=== PATIENT | female | born 1950 | race Caucasian/White ===

== ENCOUNTER 2016-06-01 11:36 | Observation (INO) | payer MEDICARE, OTHER ==
[~2016-06-01] VITALS: Ht 167.6 cm; Wt 86.5 kg
[2016-06-01] MEDS ORDERED: PROBCAP4 PO (11:51)
[2016-06-01] MEDS ORDERED: [UNRECOGNIZED DRUG - CODE] PO (11:51)
[2016-06-01] MEDS ORDERED: CARV12.5 (11:51)
[2016-06-01] MEDS ORDERED: ATOR1TAB19 (11:51)
[2016-06-01] MEDS ORDERED: FISH1000 PO ×2 (11:51→14:40)
[2016-06-01] MEDS ORDERED: VITA200016 PO (11:51)
[2016-06-01] MEDS ORDERED: CLAR10CA3 PO (11:51)
[2016-06-01] MEDS ORDERED: FLON1SPR (11:51)
[2016-06-01] MEDS ORDERED: PROA1AER (11:51)
[2016-06-01 12:23] LABS: BASO % 0.6 % (0.0-1.0); EOS # 0.4 K/mm3 (0.0-0.50); EOS % 4.6 % (0.0-3.0); LARGE UNSTAINED CELL # 0.3 K/mm3 (0.0-0.4); LARGE UNSTAINED CELL % 3.2 % (0.0-4.0); LYMPH # 2.3 K/mm3 (1.5-4.5); LYMPH % 27.8 % (24.0-44.0); MEAN CORPUSCULAR HEMOGLOBIN 32.1 pg (27.0-33.0); MEAN CORPUSCULAR HGB CONC 34.6 g/dl (32.0-36.5); MEAN CORPUSCULAR VOLUME 92.5 fl (80.0-96.0); MONO # 0.5 K/mm3 (0.0-0.8); MONO % 6.1 % (0.0-5.0); NEUTROPHILS # 4.7 K/mm3 (1.8-7.7); NEUTROPHILS % 57.8 % (36.0-66.0); PLATELET COUNT, AUTOMATED 251 k/mm3 (150-450); WHITE BLOOD COUNT 8.2 K/mm3 (4.0-10.0)
[2016-06-01] MEDS ORDERED: ASPIRIN 81 MG CHEW TABLET PO ONE (12:30)
--- NOTE | 2016-06-01 12:39 | REP ---
Portable chest, single AP view, patient sitting: Comparison is 08/26 2002. The lung acuna are clear. The cardiac size is normal. The torin, mediastinum, and bony thorax are unremarkable. Impression: Negative portable chest. Signed by Sebastián Townsend MD 06/01/2016 12:30 P
[2016-06-01 12:50] LABS: ANION GAP 4 MEQ/L (8-16); BLOOD UREA NITROGEN 13 MG/DL (7-18); CALCIUM LEVEL 8.5 MG/DL (8.8-10.2); CARBON DIOXIDE LEVEL 29 MEQ/L (21-32); CHLORIDE LEVEL 108 MEQ/L (98-107); CREATININE FOR GFR 0.69 MG/DL (0.55-1.02); GLOMERULAR FILTRATION RATE > 60.0 (>45); GLUCOSE, FASTING 95 MG/DL (80-110); SODIUM LEVEL 141 MEQ/L (136-145)
[2016-06-01 12:51] LABS: ALBUMIN 3.5 GM/DL (3.2-5.2); ALBUMIN/GLOBULIN RATIO 1.13 (1.00-1.93); BILIRUBIN,DIRECT 0.2 MG/DL (0.0-0.2); BILIRUBIN,TOTAL 0.8 MG/DL (0.2-1.0); TOTAL PROTEIN 6.6 GM/DL (6.4-8.2)
[2016-06-01] MEDS ORDERED: ISOVUE-370 76% 100ML VIAL (Q9967) As Ordered ONE (13:31)
--- NOTE | 2016-06-01 14:12 | REP ---
Of the CT of the chest with IV contrast, CT pulmonary angiography: There are no comparisons. There are no emboli in the pulmonary trunk or central pulmonary arteries. There are small emboli in the pulmonary artery to the apical segment of the right upper lobe. No other emboli are identified. There are no infiltrates, effusions or masses. There is no adenopathy. The thoracic aorta is unremarkable. Cardiac size is normal. There is no pericardial effusion. The visualized upper abdominal contents are unremarkable except for a 2.4 cm hepatic cyst. Impression: There are small emboli in the pulmonary artery to the knee apical segment of the right upper lobe. There is a 2.4 cm hepatic cyst. Otherwise, negative CT study of the chest. Signed by Sebastián Townsend MD 06/01/2016 02:04 P
[2016-06-01 14:30] LABS: INR 1.02
[2016-06-01] MEDS ORDERED: ATOR1TAB19 PO (14:39)
[2016-06-01] MEDS ORDERED: PROA1AER INH (14:39)
[2016-06-01] MEDS ORDERED: BREO1INH INH (14:39)
[2016-06-01] MEDS ORDERED: CARV12.5 PO (14:39)
--- NOTE | 2016-06-01 15:51 | REP ---
Bilateral lower extremity deep vein duplex ultrasound: The deep veins demonstrate normal compression, normal Doppler color flow and normal Doppler waveforms with respiration and augmentation from the popliteal vein to the common femoral vein. Impression: There is no deep vein thrombus in the right or left lower extremity. Signed by Sebastián Townsend MD 06/01/2016 03:42 P
[2016-06-01 17:50] VITALS: BP 139/92
[2016-06-01 18:02] LABS: ERYTHROCYTE SEDIMENTATION RATE 14 mm/hr (0-30)
[2016-06-01] MEDS ORDERED: IPRATROPIUM 0.5MG/ALBUTEROL 2.5MG INH SOL UD 3ML (DUONEB)(J7620) NEB PRN (19:00)
[2016-06-01 19:55] VITALS: BP 136/82
[2016-06-01] MEDS: IPRATROPIUM 0.5MG/ALBUTEROL 2.5MG INH SOL UD 3ML (DUONEB)(J7620) NEB SCH (20:00)
--- NOTE | 2016-06-01 20:12 | HPE ---
DATE OF ADMISSION: 06/01/2016 PRIMARY CARE PROVIDER: Dr. Jozef Piña. REASON FOR ADMISSION: Chest pressure, pulmonary emboli. HISTORY OF PRESENT ILLNESS: The patient is a 66-year-old female with past medical history significant for hypertension, hyperlipidemia, who presented to the emergency room complaining of chest pressure, difficulty breathing. The patient stated that she has been having this chest pressure on and off since October. She was diagnosed with bronchitis and sinusitis and she was given allergy medications and prednisone. Her chest pressure had resolved with inhalers, recently with Breo, and then last week she started to have chest pressure again that has gotten progressively worse over the last few days. Yesterday she stated she was walking when she started to feel short of breath and had to stop. When asked about leg pain, she stated about a week ago she started to have bilateral lower extremity pain, worse when she was getting a pedicure. In the emergency room, the patient had two sets of negative troponins. CT angiogram (CTA) showed pulmonary emboli. The patient was saturating at 96% on room air. Hospitalist was called for the admission to rule out any underlying cardiac component to her chest pressure and to monitor the patient overnight. REVIEW OF SYSTEMS: 12-point review of systems was obtained, all of which was negative except for those mentioned above. PAST MEDICAL HISTORY: Significant for hypertension, hyperlipidemia. PAST SURGICAL HISTORY: Significant for breast reduction, tonsillectomy. SOCIAL HISTORY: The patient denies any smoking, drug or alcohol use. Lives at home with her . ALLERGIES: No known drug allergies. FAMILY HISTORY: The patient has family history of heart disease. Her uncle at age 57, and history of colon cancer mother and maternal grandmother. HOME MEDICATIONS: - ProAir HFA two puffs inhaled every four hours as needed for shortness of breath - atorvastatin 10 mg by mouth daily - carvedilol 12.5 mg by mouth twice a day - fish oil 1000 mg by mouth daily - Flonase 50 mcg in each nostril daily - Breo Ellipta one puff inhaled daily - probiotic one capsule by mouth daily - Claritin 10 mg by mouth daily - vitamin D 2000 units by mouth daily PHYSICAL FINDINGS: VITALS: On admission, temperature 97.1, pulse 73, respiratory rate 18, blood pressure is 148/85, pulse oximetry 95% on room air. HEENT: Pupils equal, round, reactive to light and accommodation. NECK: Supple. No jugular venous distention (JVD). LUNGS: Clear bilaterally. ABDOMEN: Soft, nontender, nondistended. EXTREMITIES: Mild tenderness to palpation on both lower extremities. NEUROLOGIC: Cranial nerves II-XII grossly intact. No focal deficits. LABORATORY FINDINGS: WBC 8.2, hemoglobin 14.6, hematocrit 42.3, platelet count 251. Sodium 41, potassium four, chloride 108, BUN 13, creatinine 0.69. Liver enzymes within normal limits. Troponins negative times two. C-reactive protein 1.5. INR 1.02, PT 13.5, APTT 27.3. IMAGING STUDIES: Lower extremity Doppler was negative for DVT right or left lower extremity. CT angiogram showed small emboli in the pulmonary artery apical segment of the right upper lobe and the 2.4 cm hepatic cyst, otherwise negative CT. ASSESSMENT AND PLAN: 1. Pulmonary emboli. We will start the patient on Eliquis 10 mg by mouth twice a day for one week. Will order a hypercoagulability workup. We will monitor the patient on telemetry. Will order an echocardiogram. 2. Chest pressure. We will rule out cardiac disease. The patient had two negative troponins. No change in electrocardiogram (EKG). Will repeat EKG in the morning, order an echocardiogram. Continue to trend cardiac enzymes. The patient will likely need cardiology referral upon discharge for possible stress test, given history of family heart disease. 3. 2.4 cm hepatic cyst; continue to monitor. 4. History of hypertension. Will continue the patient's carvedilol 12.5 mg by mouth twice a day 5. History of hyperlipidemia. Continue atorvastatin 10 mg by mouth daily. 6. History of seasonal allergies. We will resume the patient's Flonase. 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 7. Deep venous thrombosis (DVT) prophylaxis. The patient was started on Eliquis twice a day.
[2016-06-01] MEDS: APIXABAN 5 MG TAB (ELIQUIS) PO SCH (20:37)
[2016-06-01] MEDS: CARVedilol 12.5 MG TAB PO SCH (20:37)
[2016-06-01 23:59] VITALS: BP 117/57
[2016-06-02] MEDS: IPRATROPIUM 0.5MG/ALBUTEROL 2.5MG INH SOL UD 3ML (DUONEB)(J7620) NEB SCH ×4 (02:00→20:28)
[2016-06-02 05:00] VITALS: BP 104/79
[2016-06-02 05:23] LABS: MEAN CORPUSCULAR HEMOGLOBIN 30.2 pg (27.0-33.0); MEAN CORPUSCULAR HGB CONC 32.8 g/dl (32.0-36.5); MEAN CORPUSCULAR VOLUME 92.1 fl (80.0-96.0); RED CELL DISTRIBUTION WIDTH 12.9 % (11.5-14.5); WHITE BLOOD COUNT 7.3 K/mm3 (4.0-10.0)
[2016-06-02 05:35] LABS: ALBUMIN/GLOBULIN RATIO 0.88 (1.00-1.93); ALKALINE PHOSPHATASE 76 U/L (45-117); ALT/SGPT 21 U/L (12-78); ANION GAP 6 MEQ/L (8-16); AST/SGOT 9 U/L (15-37); BILIRUBIN,TOTAL 0.7 MG/DL (0.2-1.0); BLOOD UREA NITROGEN 11 MG/DL (7-18); CALCIUM LEVEL 8.2 MG/DL (8.8-10.2); CARBON DIOXIDE LEVEL 30 MEQ/L (21-32); CHLORIDE LEVEL 108 MEQ/L (98-107); CREATININE FOR GFR 0.67 MG/DL (0.55-1.02); GLOMERULAR FILTRATION RATE > 60.0 (>45); GLUCOSE, FASTING 88 MG/DL (80-110); MAGNESIUM LEVEL 2.2 MG/DL (1.8-2.4); POTASSIUM SERUM 3.8 MEQ/L (3.5-5.1); SODIUM LEVEL 144 MEQ/L (136-145); TOTAL PROTEIN 6.4 GM/DL (6.4-8.2)
[2016-06-02 08:00] VITALS: BP 130/84
[2016-06-02] MEDS: ATORVASTATIN 10 MG TAB PO SCH (08:45)
[2016-06-02] MEDS: APIXABAN 5 MG TAB (ELIQUIS) PO SCH ×2 (08:45→20:10)
[2016-06-02] MEDS: CARVedilol 12.5 MG TAB PO SCH ×2 (08:45→20:10)
[2016-06-02] MEDS: FLUTICASONE PROP 0.05% NASAL SPRAY 16 GM (FLONASE) SCH (09:00)
[2016-06-02] MEDS ORDERED: LORATADINE 10 MG TAB PO SCH ×2 (09:00→21:00)
[2016-06-02] MEDS: VITAMIN D 1,000 INTERNATIONAL UNITS TABLET PO SCH (09:00)
[2016-06-02] MEDS ORDERED: ELIQ5TAB PO (11:15)
[2016-06-02] MEDS ORDERED: CEPACOL LOZENGE PO PRN (11:30)
[2016-06-02 11:56] VITALS: BP 126/82
--- NOTE | 2016-06-02 14:12 | IPN ---
DATE OF SERVICE: 06/02/2016 SUBJECTIVE: This is a 66-year-old female who was admitted overnight due to episodes of chest pressure and shortness of breath. On admission, she was found to have pulmonary embolism (PE). She was in her normal state of health until approximately October, when she went on a car ride to [place] lasting approximately 6-7 hours. After her trip, she came home and had some vague coughing spells. She was diagnosed with sinusitis and was given Breo and prednisone with some relief of symptoms. However, approximately 2 weeks ago, started developing pressure in her chest, and yesterday her symptoms worsened. Also noticed shortness of breath with her symptoms. Since admission, has been feeling well. Chest pressure is improved. However, still reports cough, more significant after talking for prolonged period of time. No shortness of breath currently, palpitations, nausea, vomiting, diarrhea, constipation. Did report some headache, which lasted for a few minutes this morning which has since resolved. OBJECTIVE: Vital signs: Blood pressure 130/84, heart rate 75, temperature 96.5, respiration rate 18, pulse oximetry 93% on room air. Intake and output the last 24 hours: 240 and 300. General: The patient is sitting in bed, comfortable. No acute distress. Alert , awake, oriented times three. Pleasant and cooperative. Appears stated age. at bedside. HEENT: Normocephalic, atraumatic. Moist oral mucosa. Good dentition. Eyes: Extraocular movement intact. Pupils equal and reactive to light. Neck is supple. Trachea midline. No jugular venous distention (JVD). Chest: Symmetric chest rise. No accessory muscle use. Breath sounds were clear to auscultation bilaterally without rales, rhonchi, or wheezing. Heart: Regular rate and rhythm with normal S1, S2. Did not appreciated murmurs , rubs, or gallops. Abdomen: Is obese, nontender, nondistended. Bowel sounds present. No guarding. No rebound. Extremities: No erythematous changes or edema noted. Pedal pulses are present bilateral. Neurologic: Alert, awake, oriented times three. Strength 5/5 in all extremities. Sensory intact. Psychiatric: Normal affect. LABORATORY DATA: WBC 7.3, hemoglobin 12.9, hematocrit 39.3, platelet 232. Sodium 144, potassium 3.8, chloride 108, carbon dioxide 30, BUN 11, creatinine 0.67, glucose 88, calcium 8.2, magnesium 2.2. INR 1.02. Hypercoagulable workup studies are pending. Cardiac markers are negative times four. Chest x-ray negative. CTA report: No emboli in the pulmonary trunk or central pulmonary arteries. Small emboli in the pulmonary artery to the apical segment of the right upper lobe. No infiltrates, effusions, or masses seen. No adenopathy. Aorta unremarkable. Normal heart size. No pericardial effusion. Lower extremity without evidence of deep venous thrombosis (DVT). ASSESSMENT AND PLAN: Ms. Ta is a pleasant 66-year-old female with history of hypertension, hyperlipidemia, presented with chest pain, shortness of breath, found to have PE. 1. Pulmonary emboli. Likely secondary to her prolonged car ride. However, it was in October when she last had her long trip. Hypercoagulable studies are currently pending. She was started on Eliquis 10 mg by mouth twice a day. Will continue for 1 week and then decrease down to 5 mg twice a day. Medication has been sent to her pharmacy to be approved for prior authorization. Currently, echocardiogram has been ordered but has not officially completed. Will followup with echocardiogram results. Continue to monitor her in the progressive care unit (PCU) for now. Cardiac workup currently negative. The patient and her were instructed not to take any medications that can put her at risk for bleeding while she is on Eliquis, such as Motrin, Aleve, Advil, or any other nonsteroidal antiinflammatory drugs (NSAIDs). 2. Chest pressure. So far, cardiac marker has been negative times four. Continue to monitor for now. She remains asymptomatic this morning. Considering her age, history of hypertension, hyperlipidemia, and family history of heart disease, she might benefit from a cardiac workup outpatient if her workup here remains negative. 3. Cough. Suspect that this is likely secondary to nasal drip. However, because of her persistent symptoms, we have also sent for a respiratory panel. Have added Cepacol. 4. History of hypertension. Continue home dose of Coreg 12.5 mg by mouth twice a day. 5. History of hyperlipidemia. She is on her home dose of Lipitor. 6. Vitamin D deficiency. Will resume vitamin D supplementation. 7. History of seasonal allergies. Continue Flonase and Claritin. My preceptor for this patient encounter was Dr. Mitchell Urbina. The preceptor was physically present in the building during the encounter and was fully available. As needed, all aspects of the patient interview, examination, medical decision making process, and medical care plan development were reviewed and approved by the preceptor. The preceptor is aware and concurs with the plan as stated in the body of this note and will attest to such by his/her cosignature. PARVEEN
[2016-06-02 15:31] VITALS: BP 116/69
--- NOTE | 2016-06-02 19:46 | ECHO ---
DATE OF PROCEDURE: 06/02/2016 REFERRING PHYSICIAN: Mitchell Urbina MD INDICATION: Chest discomfort. HEIGHT: 168 cm WEIGHT: 85 kg DIMENSIONS: IVS: 1.3 LV: 4.1 LVPW: 1.1 LA: 4.1 Aorta: 3.1 FINDINGS: The study is of acceptable technical quality. Left ventricle is of normal size and systolic function with estimated ejection fraction (EF) approximately 65-70%. Borderline left ventricular hypertrophy (LVH) is noted. Right ventricle is normal size. Left atrium is at least mildly enlarged. Right atrium is probably normal size. Aortic valve appears mildly sclerotic, but it has three cusps and normal mobility. Mitral, tricuspid and pulmonic valves appear normal. No pericardial effusion is noted. Inferior vena cava is normal size. Aortic root appears normal. Aortic arch was not seen. Abdominal aorta appears normal based on limited views. Doppler interrogation reveals no significant aortic stenosis or insufficiency. There is trace mitral insufficiency and trace tricuspid insufficiency. Calculated pulmonary artery pressure is within normal limits. Pulmonic valve also exhibits trace insufficiency. Mitral inflow pattern and tissue Doppler imaging of mitral annulus reveal grade 1 diastolic dysfunction (tissue Doppler velocities of septal and lateral mitral annulus are 11.2 and 7.7 cm/s respectively). CONCLUSIONS: 1. Study is of acceptable technical quality. 2. Normal LV size with mild LVH and preserved LV systolic function. Grade 1 diastolic dysfunction. 3. No hemodynamically significant valvular disease. 4. Normal central venous pressure and likely normal pulmonary artery pressure. COMMENTS: Subacute bacterial endocarditis (SBE) prophylaxis is not recommended. No obvious findings to provide etiology of chest discomfort.
[2016-06-02 20:00] VITALS: BP 139/89
--- NOTE | 2016-06-02 20:26 | ECGEPIP ---
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
--- NOTE | 2016-06-02 20:28 | ECGEPIP ---
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
--- NOTE | 2016-06-02 21:18 | ECGEPIP ---
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
[2016-06-02 23:59] VITALS: BP 107/61
[2016-06-03] MEDS: IPRATROPIUM 0.5MG/ALBUTEROL 2.5MG INH SOL UD 3ML (DUONEB)(J7620) NEB SCH ×2 (02:00→08:37)
[2016-06-03 04:45] VITALS: BP 137/75
[2016-06-03 06:26] LABS: MEAN CORPUSCULAR HEMOGLOBIN 29.9 pg (27.0-33.0); MEAN CORPUSCULAR HGB CONC 32.6 g/dl (32.0-36.5); MEAN CORPUSCULAR VOLUME 91.6 fl (80.0-96.0); RED CELL DISTRIBUTION WIDTH 12.8 % (11.5-14.5); WHITE BLOOD COUNT 6.7 K/mm3 (4.0-10.0)
[2016-06-03 06:37] LABS: ALBUMIN 2.8 GM/DL (3.2-5.2); ALKALINE PHOSPHATASE 66 U/L (45-117); ALT/SGPT 20 U/L (12-78); ANION GAP 6 MEQ/L (8-16); AST/SGOT 8 U/L (15-37); BILIRUBIN,TOTAL 0.6 MG/DL (0.2-1.0); BLOOD UREA NITROGEN 14 MG/DL (7-18); CALCIUM LEVEL 8.2 MG/DL (8.8-10.2); CARBON DIOXIDE LEVEL 27 MEQ/L (21-32); CHLORIDE LEVEL 110 MEQ/L (98-107); CREATININE FOR GFR 0.63 MG/DL (0.55-1.02); GLOMERULAR FILTRATION RATE > 60.0 (>45); GLUCOSE, FASTING 90 MG/DL (80-110); MAGNESIUM LEVEL 2.1 MG/DL (1.8-2.4); POTASSIUM SERUM 3.8 MEQ/L (3.5-5.1); SODIUM LEVEL 143 MEQ/L (136-145); TOTAL PROTEIN 5.9 GM/DL (6.4-8.2)
[2016-06-03 07:33] VITALS: BP 123/68
[2016-06-03] MEDS ORDERED: MUCI600T34 PO (09:22)
[2016-06-03] MEDS: FLUTICASONE PROP 0.05% NASAL SPRAY 16 GM (FLONASE) SCH (09:28)
[2016-06-03 09:29] VITALS: BP 123/68
[2016-06-03] MEDS: ATORVASTATIN 10 MG TAB PO SCH (09:29)
[2016-06-03] MEDS: CARVedilol 12.5 MG TAB PO SCH (09:29)
[2016-06-03] MEDS: VITAMIN D 1,000 INTERNATIONAL UNITS TABLET PO SCH (09:29)
[2016-06-03] MEDS: APIXABAN 5 MG TAB (ELIQUIS) PO SCH (09:29)
--- NOTE | 2016-06-03 11:54 | DSES ---
DATE OF ADMISSION: 06/01/2016 DATE OF DISCHARGE: 06/03/2016 PRIMARY CARE PROVIDER: Dr. Jozef Piña CONSULTATIONS: None. PROCEDURES: None. DIAGNOSTIC IMAGIN) CTA showed small emboli in the pulmonary artery to the apical segment of right upper lobe. 2) Ultrasound of bilateral lower extremities negative for deep venous thrombosis (DVT). 3) Echocardiogram showed normal left ventricular (LV) size with mild left ventricular hypertrophy (LVH) and preserved systolic function, grade 1 diastolic dysfunction, no hemodynamically significant valvular disease, normal central pressure, and likely normal pulmonary artery pressure. Right ventricle is normal size. 4) EKG showed sinus rhythm with low QRS complex in voltage leads, nonspecific T-wave abnormality. PRIMARY ADMITTING DIAGNOSES: 1. Pulmonary emboli. 2. Chest pain. 3. Cough. SECONDARY ADMITTING DIAGNOSES: 1. Hypertension. 2. Hyperlipidemia. 3. Vitamin D deficiency. 4. Seasonal allergies. 5. Overweight. BRIEF HOSPITAL COURSE: Mrs. Ta is a 66-year-old female with past medical history as mentioned above who presented to the emergency department (ED) on the day of admission with complaint of chest pressure and shortness of breath. Reportedly has had on-and-off chest pressure since October and was diagnosed with sinusitis/bronchitis and was treated for allergic symptoms. She was also given prednisone and BREO. For a brief time, her symptoms resolved; however, a few days prior to admission, her symptoms recurred and worsened. Her most recent travel was back in October where she went to [place] in a 6-7 hour car ride. On admission, she was found to have pulmonary embolism (PE) on CTA. For complete history and physical, please seen dictation on admission. Because of her symptoms, she was admitted for further workup for chest pain. Cardiac markers were checked and were negative. Had EKG that was unrevealing for acute coronary disease. She had echocardiogram with results as mentioned above. For her PE, she was started on Eliquis without any adverse effect. Her cough was believed to be secondary to postnasal drip. Her respiratory panel was checked and did not show any evidence of viral infection. Because of her improved condition, the patient was amenable to be discharged. However, because of intermittent chest pain, age greater than 55, history of hyperlipidemia, hypertension, and also family history, the patient is recommended to consider outpatient cardiology referral for consideration of a stress test. PHYSICAL EXAM AT TIME OF DISCHARGE: VITAL SIGNS: Blood pressure 123/68, heart rate 66, temperature 98, respiration rate 18, pulse oximetry 93% on room air. GENERAL: The patient is lying in bed, comfortable, in no acute distress. She is alert, awake, oriented times three, pleasant, cooperative. HEENT: Normocephalic, atraumatic. Moist oral mucosa. Good dentition. Eyes: Extraocular movement intact. Pupils equal and reactive to light. NECK: Supple. Trachea midline. No jugular venous distention (JVD). CHEST: Symmetric chest rise. No accessory muscle use. Breath sounds clear to auscultation bilaterally. HEART: Regular rate and rhythm with normal S1, S2. ABDOMEN: Is obese but nontender and nondistended. Bowel sounds present. No guarding. No rebound. EXTREMITIES: No pedal edema. Pedal pulses present bilaterally. No erythematous changes. PSYCHIATRIC: Pleasant. Normal affect. NEUROLOGIC: No focal deficits appreciated. LABORATORY DATA: WBC 6.7, hemoglobin 12.3, hematocrit 37.6, platelets 212. Sodium 143, potassium 3.8, chloride 110, carbon dioxide 27, BUN 14, creatinine 0.63, glucose 90. TSH is normal. INR 1.02. Hypercoagulable workup is currently pending. DISCHARGE: Home. CONDITION: Stable. ACTIVITY: As tolerated. DIET: Low-cholesterol, low-fat diet. DISCHARGE MEDICATIONS: New medications: - Eliquis 10 mg by mouth twice a day for 5 days then decrease to 5 mg by mouth twice a day - Mucinex 600 mg by mouth twice a day Continue the following home medications: - Coreg 12.5 mg by mouth twice a day - ProAir HFA two puffs inhaled every 4 hours as needed - Lipitor 10 mg by mouth daily - black cohosh 20 mg by mouth twice a day - fish oil 1000 mg by mouth daily - Flonase 50 mcg nasal spray daily - BREO one puff inhaled daily - Bacid one tablet by mouth daily - loratadine 10 mg by mouth daily - vitamin D 2000 units by mouth daily FOLLOWUP: With Dr. Piña within 1-2 weeks. Recommend consider referral to cardiology for further workup of chest pain. DISCHARGE INSTRUCTIONS: Patient is instructed to return to the hospital if she has worsening or recurrent symptoms or anything else concerning to patient and family. She is also recommended to avoid nonsteroidal anti-inflammatory drugs (NSAIDs) while taking Eliquis. All this was explained to the patient at time of discharge and all questions answered. Time Spent: 35 minutes. My preceptor for this patient encounter was Dr. Samantha Sharp. The preceptor was physically present in the building during the encounter and was fully available. As needed, all aspects of the patient interview, examination, medical decision making process, and medical care plan development were reviewed and approved by the preceptor. The preceptor is aware and concurs with the plan as stated in the body of this note and will attest to such by his/her cosignature. Edited: nessa 06/05/2016 1539 MTDD
[2016-06-10 08:29] LABS: PROTEIN C ANTIGEN 104 % (60-150); PROTEIN S ANTIGEN FREE 113 % (57-157); PROTEIN S ANTIGEN TOTAL 134 % (60-150); SJOGREN'S ANTI SS-A <0.2 AI (0.0-0.9); SJOGREN'S ANTI SS-B <0.2 AI (0.0-0.9)
== END 2016-06-03 11:24 | disposition home or self-care (01) ==
LOC: M ED 13:03 → M ED INP 16:27 → M PCU 17:51
PROVIDERS: ADMIT Internal Medicine; ATTEND Internal Medicine
DX: I26.99 Other pulmonary embolism without acute cor pulmonale (principal); I51.7 Cardiomegaly; R07.9 Chest pain, unspecified; R05 Cough; I10 Essential (primary) hypertension; E78.5 Hyperlipidemia, unspecified; E55.9 Vitamin D deficiency, unspecified; J30.2 Other seasonal allergic rhinitis; E66.3 Overweight; K76.89 Other specified diseases of liver; Z79.899 Other long term (current) drug therapy; Z79.51 Long term (current) use of inhaled steroids; Z82.49 Family history of ischemic heart disease and other diseases of the circulatory system
CPT/HCPCS: 36415; 71010; 71275; 80048; 80053; 80076; 81240; 81241; 82150; 82550; 82553; 83090; 83690; 83735; 84443; 84484; 85025; 85027; 85300; 85301; 85302; 85305; 85306; 85610; 85613; 85652; 85730; 86038; 86140; 86147; 86235; 86256; 87486; 87581; 87633; 87798; 93005; 93041; 93306; 93970; 94640; 94760; 99285; G0378; Q9967

== ENCOUNTER 2016-10-02 12:40 | Outpatient (CLI) | payer MEDICARE, OTHER ==
[~2016-10-02] VITALS: Ht 167.6 cm; Wt 86.2 kg
[~2016-10-02 12:40] MED LIST: ATOR1TAB19; ATOR1TAB19 PO; BREO1INH INH; CARV12.5; CARV12.5 PO; CLAR10CA3 PO; ELIQ5TAB PO; FISH1000 PO; FLON1SPR; MUCI600T37 PO; PROAAER10; PROAAER10 INH; PROBCAP4 PO; VITA200016 PO; [UNRECOGNIZED DRUG - CODE] PO
[2016-10-02] MEDS ORDERED: NS 1,000 ML IV ONE (12:45)
[2016-10-02] MEDS ORDERED: PROPOFOL 500 MG/50 ML VIAL As Ordered ONE (13:09)
--- NOTE | 2016-10-02 14:07 | ROOR ---
Patient Name: Stephanei Ta Procedure Date: 10/02/2016 1:50 PM Date of : 1950 Age: 66 Room: [facility] Gender: Female Note Status: Finalized Procedure: Upper GI endoscopy Indications: Functional Dyspepsia, Endoscopy to assess diarrhea in patient suspected of having celiac disease Providers: Tien CAMPA MD Referring MD: Jozef Piña MD Requesting Provider: Medicines: Monitored Anesthesia Care Complications: No immediate complications. Procedure: Pre-Anesthesia Assessment: - The heart rate, respiratory rate, oxygen saturations, blood pressure, adequacy of pulmonary ventilation, and response to care were monitored throughout the procedure. The Endoscope was introduced through the mouth, and advanced to the second part of duodenum. The upper GI endoscopy was accomplished without difficulty. The patient tolerated the procedure well. Findings: Non-severe esophagitis was found at the gastroesophageal junction. Biopsies were taken with a cold forceps for histology. The entire examined stomach was normal. (large volume) The examined duodenum was normal. Biopsies for histology were taken with a cold forceps for evaluation of celiac disease. Impression: - Mild reflux esophagitis. Biopsied. - Normal stomach. - Normal examined duodenum. Biopsied. Recommendation: - Use Prilosec (omeprazole) 40 mg PO daily for 3 months. - Telephone endoscopist for pathology results in 2 weeks. - (the script was sent to your pharmacy on file) Tien Campa MD Tien CAMPA MD 10/02/2016 2:06:29 PM This report has been signed electronically. Number of Addenda: 0 Note Initiated On: 10/02/2016 1:50 PM Estimated Blood Loss: Estimated blood loss: none.
--- NOTE | 2016-10-02 14:26 | ROOR ---
Patient Name: Stephanie Ta Procedure Date: 10/02/2016 1:51 PM Date of : 1950 Age: 66 Room: [facility] Gender: Female Note Status: Finalized Procedure: Colonoscopy Indications: Generalized abdominal pain, Suspected irritable bowel syndrome, Functional diarrhea Providers: Tien CAMPA MD Referring MD: Jozef Piña MD Requesting Provider: Medicines: Monitored Anesthesia Care Complications: No immediate complications. Procedure: Pre-Anesthesia Assessment: - The heart rate, respiratory rate, oxygen saturations, blood pressure, adequacy of pulmonary ventilation, and response to care were monitored throughout the procedure. The Colonoscope was introduced through the anus and advanced to 5 cm into the ileum. The colonoscopy was performed without difficulty. The patient tolerated the procedure well. The quality of the bowel preparation was good. Findings: The perianal and digital rectal examinations were normal. Three sessile polyps were found in the descending colon and splenic flexure. The polyps were diminutive in size. These polyps were removed with a cold snare. Resection and retrieval were complete. A few medium-mouthed diverticula were found in the sigmoid colon. Small Internal Hemorrhoids. The exam was otherwise without abnormality on direct and retroflexion views. The terminal ileum appeared normal. Biopsies for histology were taken with a cold forceps from the entire colon for evaluation of microscopic colitis. Impression: - Three diminutive polyps in the descending colon and at the splenic flexure, removed with a cold snare. Resected and retrieved. - Mild diverticulosis in the sigmoid colon. - Small Internal Hemorrhoids. - The examination was otherwise normal on direct and retroflexion views. - The examined portion of the ileum was normal. - Biopsies were taken with a cold forceps from the entire colon for evaluation of microscopic colitis. - (Irritable Bowel Syndrome/IBS suspected.) Recommendation: - Stop dicyclomine, start Hyoscyamine--script was sent to your pharmacy. - Await Pathology report: Telephone endoscopist for pathology results in 2 weeks. - If the pathology report reveals adenomatous tissue, then repeat the colonoscopy for surveillance in 3 - 5 years. - If the pathology report indicates hyperplastic polyp, then repeat colonoscopy for screening purposes in 10 years. - Resume Eliquis (apixaban) at prior dose today. Tien Campa MD Tien CAMPA MD 10/02/2016 2:26:41 PM This report has been signed electronically. Number of Addenda: 0 Note Initiated On: 10/02/2016 1:51 PM Estimated Blood Loss: Estimated blood loss: none.
[2016-10-02 15:00] VITALS: BP 144/79
== END 2016-10-02 15:10 | disposition home or self-care (01) ==
LOC: M OPP 12:40
PROVIDERS: ATTEND Internal Medicine Gastroenterology
DX: R10.84 Generalized abdominal pain (principal); R19.7 Diarrhea, unspecified; R14.0 Abdominal distension (gaseous); D12.4 Benign neoplasm of descending colon; D12.3 Benign neoplasm of transverse colon; K57.30 Diverticulosis of large intestine without perforation or abscess without bleeding; K64.8 Other hemorrhoids; K30 Functional dyspepsia; K20.9 Esophagitis, unspecified; I10 Essential (primary) hypertension; E78.5 Hyperlipidemia, unspecified; Z78.0 Asymptomatic menopausal state; J45.909 Unspecified asthma, uncomplicated; Z86.711 Personal history of pulmonary embolism; Z79.01 Long term (current) use of anticoagulants; Z79.899 Other long term (current) drug therapy; Z80.0 Family history of malignant neoplasm of digestive organs

== ENCOUNTER → 2017-08-27 | Outpatient (REF) | payer MEDICARE, OTHER ==
[2017-08-27 12:45] LABS: VITAMIN B12 LEVEL 554 PG/ML
[2017-08-27 12:46] LABS: ALBUMIN 3.7 GM/DL (3.2-5.2); ALBUMIN/GLOBULIN RATIO 1.19 (1.00-1.93); ALKALINE PHOSPHATASE 95 U/L (45-117); ALT/SGPT 27 U/L (12-78); ANION GAP 7 MEQ/L (8-16); AST/SGOT 13 U/L (7-37); BILIRUBIN,TOTAL 0.7 MG/DL (0.2-1.0); BLOOD UREA NITROGEN 15 MG/DL (7-18); CALCIUM LEVEL 8.9 MG/DL (8.8-10.2); CARBON DIOXIDE LEVEL 33 MEQ/L (21-32); CHLORIDE LEVEL 106 MEQ/L (98-107); CHOLESTEROL LEVEL 181 MG/DL (<200); CHOLESTEROL RISK RATIO 4.022 (<5); CREATININE FOR GFR 0.73 MG/DL (0.55-1.30); FOLATE 16.4 NG/ML; GLOMERULAR FILTRATION RATE > 60.0 (>45); GLUCOSE, FASTING 83 MG/DL (70-100); HDL CHOLESTEROL 45 MG/DL (>40); LDL CHOLESTEROL 109.8 MG/DL (<100); MAGNESIUM LEVEL 2.2 MG/DL (1.8-2.4); NON-HDL-C 136 MG/DL; POTASSIUM SERUM 4.2 MEQ/L (3.5-5.1); SODIUM LEVEL 146 MEQ/L (136-145); TOTAL PROTEIN 6.8 GM/DL (6.4-8.2); TRIGLYCERIDES LEVEL 131 MG/DL (<150)
== END ==
LOC: M SFHCPLAZ 09:28
DX: I10 Essential (primary) hypertension (principal); E78.00 Pure hypercholesterolemia, unspecified; R53.82 Chronic fatigue, unspecified
CPT/HCPCS: 82746

== ENCOUNTER 2018-10-17 15:03 | Emergency (ER) | payer MEDICARE, OTHER ==
[~2018-10-17] VITALS: Ht 167.6 cm; Wt 85.5 kg
[2018-10-17 16:19] VITALS: BP 151/83
== END 2018-10-17 16:31 | disposition home or self-care (01) ==
LOC: M ED 15:03
DX: H11.31 Conjunctival hemorrhage, right eye (principal); I10 Essential (primary) hypertension; E78.5 Hyperlipidemia, unspecified; J45.909 Unspecified asthma, uncomplicated; Z86.711 Personal history of pulmonary embolism; Z79.899 Other long term (current) drug therapy

== ENCOUNTER → 2018-11-30 | Outpatient (REF) | payer MEDICARE, OTHER ==
[2018-11-30 11:26] LABS: ALBUMIN 3.7 GM/DL (3.2-5.2); ALT/SGPT 26 U/L (12-78); BILIRUBIN,TOTAL 0.9 MG/DL (0.2-1.0); BLOOD UREA NITROGEN 14 MG/DL (7-18); CALCIUM LEVEL 9.1 MG/DL (8.8-10.2); CARBON DIOXIDE LEVEL 32 MEQ/L (21-32); CHLORIDE LEVEL 106 MEQ/L (98-107); CHOLESTEROL LEVEL 214 MG/DL (<200); CREATININE FOR GFR 0.78 MG/DL (0.55-1.30); GLOMERULAR FILTRATION RATE > 60.0 (>39); GLUCOSE, FASTING 92 MG/DL (70-100); HDL CHOLESTEROL 50 MG/DL (>40); LDL CHOLESTEROL 133 MG/DL (<100); NON-HDL-C 164 MG/DL; POTASSIUM SERUM 4.1 MEQ/L (3.5-5.1); SODIUM LEVEL 143 MEQ/L (136-145); TOTAL PROTEIN 6.9 GM/DL (6.4-8.2); TRIGLYCERIDES LEVEL 156 MG/DL (<150)
[2018-11-30 11:28] LABS: FOLATE 14.4 NG/ML; VITAMIN B12 LEVEL 536 PG/ML
== END ==
LOC: M SFHCPLAZ 08:45
PROVIDERS: ATTEND Nurse Practitioner Adult Health
DX: R53.82 Chronic fatigue, unspecified (principal); I10 Essential (primary) hypertension; E78.2 Mixed hyperlipidemia

== ENCOUNTER → 2019-05-12 | Outpatient (REF) | payer MEDICARE, OTHER | LOC: M SFHCPLAZ 16:43 | DX: J06.9 Acute upper respiratory infection, unspecified (principal); Z11.59 Encounter for screening for other viral diseases | CPT/HCPCS: 87486; 87581; 87633; 87798; U0002 ==

== ENCOUNTER → 2019-05-12 | Outpatient (CLI) | payer MEDICARE, OTHER ==
--- NOTE | 2019-05-12 17:34 | REPPI ---
CHEST X-RAY: TWO VIEWS. HISTORY: Viral URI with cough. Comparison chest x-ray is from June 01, 2016. FINDINGS: The lungs are symmetrically aerated and free of infiltrate. Pleural angles are sharp. Heart is not enlarged. The aorta is somewhat tortuous and calcific as before. Pulmonary vasculature is not increased. No significant bony abnormality. IMPRESSION: No active disease. Electronically Signed by Chapin Rincon MD 05/12/2019 05:43 P
== END ==
LOC: M PLAIMG 15:34
DX: J06.9 Acute upper respiratory infection, unspecified (principal)

== ENCOUNTER → 2020-02-02 | Outpatient (CLI) | payer MEDICARE, OTHER ==
[~2020-02-02] MED LIST changes: +ASPI81CH33 PO; +D3 +TAB PO; +HM V4000 PO; +VENTAER INH
== END ==
LOC: M LABSMTC 09:53
PROVIDERS: ATTEND Family Medicine
DX: Z20.828 Contact with and (suspected) exposure to other viral communicable diseases (principal)

== ENCOUNTER 2020-02-06 14:03 | Emergency (ER) | payer MEDICARE, OTHER ==
[~2020-02-06] VITALS: Ht 167.6 cm; Wt 88.6 kg
[~2020-02-06 14:03] MED LIST changes: -ASPI81CH33 PO; -D3 +TAB PO; -HM V4000 PO; -VENTAER INH
[2020-02-06] MEDS ORDERED: D3 +TAB PO (14:45)
[2020-02-06] MEDS ORDERED: ASPI81CH33 PO (14:45)
[2020-02-06 14:56] VITALS: O2SAT 94
--- NOTE | 2020-02-06 15:42 | REP ---
INDICATION: Coronavirus workup COMPARISON: 05/12/2019 TECHNIQUE: Portable AP view of the chest FINDINGS: The mediastinum and cardiac silhouette are stable and within normal limits for portable technique. The lung acuna are clear without acute consolidation, effusion, or pneumothorax. Skeletal structures are intact. IMPRESSION: No acute cardiopulmonary process appreciated. <Electronically signed by Rolly Renae > 02/06/20 [id number]
[2020-02-06 16:03] LABS: BASO % 0.6 % (0.0-1.0); EOS % 0.4 % (0.0-3.0); HEMATOCRIT 45.2 % (36.0-47.0); HEMOGLOBIN 13.9 g/dl (12.0-15.5); LYMPH # 1.4 10^3/uL (1.5-5.0); LYMPH % 28.5 % (24.0-44.0); MEAN CORPUSCULAR HEMOGLOBIN 28.5 pg (27.0-33.0); MEAN CORPUSCULAR HGB CONC 30.8 g/dl (32.0-36.5); MEAN CORPUSCULAR VOLUME 92.6 fl (80.0-96.0); MONO # 0.5 10^3/uL (0.0-0.8); MONO % 10.2 % (0.0-5.0); NEUTROPHILS # 2.9 10^3/uL (1.5-8.5); NEUTROPHILS % 59.7 % (36.0-66.0); PLATELET COUNT, AUTOMATED 183 10^3/uL (150-450); RED BLOOD COUNT 4.88 10^6/uL (4.00-5.40); WHITE BLOOD COUNT 4.8 10^3/uL (4.0-10.0)
[2020-02-06 16:31] LABS: ALBUMIN 3.3 GM/DL (3.2-5.2); ALT/SGPT 24 U/L (12-78); BILIRUBIN,TOTAL 0.4 MG/DL (0.2-1.0); BLOOD UREA NITROGEN 18 MG/DL (7-18); C REACTIVE PROTEIN QUANTITATIV 2.24 MG/DL (0.00-0.30); CALCIUM LEVEL 8.3 MG/DL (8.8-10.2); CARBON DIOXIDE LEVEL 30 MEQ/L (21-32); CHLORIDE LEVEL 107 MEQ/L (98-107); CK-MB VALUE MASS < 1.0 NG/ML (<3.6); CPK CREATINE PHOSPHOKINASE 32 U/L (26-192); CREATININE FOR GFR 0.77 MG/DL (0.55-1.30); FERRITIN 227 NG/ML (8-252); GLOMERULAR FILTRATION RATE > 60.0 (>39); GLUCOSE, FASTING 101 MG/DL (70-100); LDH LACTATE DEHYDROGENASE 244 U/L (84-246); MB/CK RELATIVE INDEX 3.12 (< OR =4); POTASSIUM SERUM 3.8 MEQ/L (3.5-5.1); SODIUM LEVEL 142 MEQ/L (136-145); TOTAL PROTEIN 6.7 GM/DL (6.4-8.2); TROPONIN I < 0.02 NG/ML (< 0.10)
[2020-02-06] MEDS ORDERED: NS 1,000 ML IV SCH (17:33)
[2020-02-06] MEDS ORDERED: HM V4000 PO (17:44)
[2020-02-06] MEDS ORDERED: VENTAER INH (17:44)
[2020-02-06] MEDS ORDERED: BAMLANIVIMAB 700 MG in NS 180 ML IV ONE (17:45)
[2020-02-06] MEDS ORDERED: EPINEPHrine INJ 1 MG/ML 1ML AMP IM PRN (17:45)
[2020-02-06] MEDS ORDERED: ALBUTEROL 90 MCG/ACT 8GM HFA INHALER INH PRN (17:45)
[2020-02-06] MEDS ORDERED: diphenhydrAMINE 50MG/ML VIAL (J1200) IV PRN (17:45)
[2020-02-06] MEDS ORDERED: methylPREDNISolone 125MG 2ML VIAL IV PRN (17:45)
--- NOTE | 2020-02-06 17:58 | IPNPDOC ---
Date Seen The patient was seen on 02/06/20. Progress Note SUBJECTIVE: ER Physician Dr. Tran, called Hospitalist to observe pt who tested positive for COVID-19 and consented to receive monoclonal antibodies. Pt' understands risks and benefits, and has no other questions. OBJECTIVE PHYSICAL EXAMINATION: VITAL SIGNS: Please see below. GENERAL: AAOx3. no respiratory distress. no use of respiratory accessory muscles HEENT: no JVD, thyromegaly, cervical LAD CARDIOVASCULAR: S1S2 RRR RESPIRATORY: CTAB AEBE ABDOMINAL: soft nt nd +BS EXTREMITIES: no c/c/e LABORATORY DATA, IMAGING STUDIES, MICROBIOLOGY: Please see below. ASSESSMENT AND PLAN: 69 F covid positive for monoclonal ab infusion -Per protocol, pt will be given monoclonal ab infusion. -monitored for adverse reaction -if stable post-infusion, may be dc home with outpt fu with her pcp within 5 days. VS, I&O, 24H, Fishbone Vital Signs/I&O Vital Signs Date Time Temp Pulse Resp B/P (MAP) Pulse Ox O2 Delivery O2 Flow Rate FiO2 02/06/20 16:58 67 16 96 Room Air 02/06/20 16:15 150/89 (109) 02/06/20 14:22 99.0 Laboratory Data 24H LABS Laboratory Tests 2 02/06/20 15:51: Immature Granulocyte % (Auto) 0.6, Neutrophils (%) (Auto) 59.7, Lymphocytes (%) (Auto) 28.5, Monocytes (%) (Auto) 10.2H, Eosinophils (%) (Auto) 0.4, Basophils (%) (Auto) 0.6, Neutrophils # (Auto) 2.9, Lymphocytes # (Auto) 1.4L, Monocytes # (Auto) 0.5, Eosinophils # (Auto) 0.0, Basophils # (Auto) 0.0, Nucleated Red Blood Cells % (auto) 0.0, D-Dimer, Quantitative 2055.09H, Anion Gap 5L, Glomerular Filtration Rate > 60.0, Lactic Acid Level 0.9, Calcium Level 8.3L, Ferritin 227, Total Bilirubin 0.4, Aspartate Amino Transf (AST/SGOT) 19, Alanine Aminotransferase (ALT/SGPT) 24, Alkaline Phosphatase 88, Lactate Dehydrogenase 244, Total Creatine Kinase 32, Creatine Kinase MB < 1.0, Creatine Kinase MB Relative Index 3.12, Troponin I < 0.02, C-Reactive Protein, Quantitative 2.24H, Total Protein 6.7, Albumin 3.3, Albumin/Globulin Ratio 1.0L CBC/BMP Laboratory Tests 02/06/20 15:51 MELI MONTERROSO MD Feb 06, 2020 17:39
[2020-02-06 20:46] VITALS: BP 126/67
== END 2020-02-06 21:40 | disposition still patient (30) ==
LOC: M ED 14:03
DX: U07.1 COVID-19 (principal); I10 Essential (primary) hypertension; J45.909 Unspecified asthma, uncomplicated; N39.3 Stress incontinence (female) (male); Z86.711 Personal history of pulmonary embolism; Z79.899 Other long term (current) drug therapy; Z79.82 Long term (current) use of aspirin
CPT/HCPCS: 71045; 80053; 82550; 82553; 82728; 83605; 83615; 84484; 85025; 85379; 86140; 99285; M0239

== ENCOUNTER 2020-02-06 18:51 | Outpatient (CLI) | payer MEDICARE, OTHER ==
[~2020-02-06] VITALS: Ht 167.6 cm; Wt 89.7 kg
[~2020-02-06 18:51] MED LIST changes: +ASPI81CH33 PO; +D3 +TAB PO; +HM V4000 PO; +VENTAER INH
[2020-02-06 21:45] VITALS: BP 134/81
[2020-02-06] MEDS ORDERED: NS 1,000 ML IV SCH (23:43)
[2020-02-06] MEDS ORDERED: ALBUTEROL 90 MCG/ACT 8GM HFA INHALER INH PRN (23:45)
[2020-02-06] MEDS ORDERED: EPINEPHrine INJ 1 MG/ML 1ML AMP IM PRN (23:45)
[2020-02-06] MEDS ORDERED: diphenhydrAMINE 50MG/ML VIAL (J1200) IV PRN (23:45)
[2020-02-06] MEDS ORDERED: methylPREDNISolone 125MG 2ML VIAL IV PRN (23:45)
[2020-02-06] MEDS ORDERED: ALBUTEROL SULFATE 2.5 MG/0.5 ML INH NEB SOLN INH PRN (23:45)
[2020-02-07] MEDS ORDERED: BAMLANIVIMAB 700 MG in NS 180 ML IV ONE (00:30)
[2020-02-07 00:54] VITALS: BP 159/88
[2020-02-07 00:55] VITALS: BP 159/88
[2020-02-07 01:27] VITALS: BP 156/74
[2020-02-07] MEDS ORDERED: ACETAMINOPHEN 500 MG TAB PO ONE (01:30)
[2020-02-07 01:58] VITALS: BP 146/73
[2020-02-07 02:30] VITALS: BP 135/71
[2020-02-07 03:00] VITALS: BP 112/78
== END 2020-02-07 03:30 | disposition home or self-care (01) ==
LOC: M OPCLI4 18:51 → M ED 18:51 → M 4MAIN 22:04 → M OPCLI4 02-07 03:30
PROVIDERS: ATTEND General Practice
DX: U07.1 COVID-19 (principal)

== ENCOUNTER → 2020-03-13 | Outpatient (REF) | payer MEDICARE, OTHER ==
[2020-03-13 14:27] LABS: HEMATOCRIT 43.1 % (36.0-47.0); HEMOGLOBIN 13.5 g/dl (12.0-15.5); MEAN CORPUSCULAR HGB CONC 31.3 g/dl (32.0-36.5); MEAN CORPUSCULAR VOLUME 92.7 fl (80.0-96.0); PLATELET COUNT, AUTOMATED 285 10^3/uL (150-450); RED BLOOD COUNT 4.65 10^6/uL (4.00-5.40); WHITE BLOOD COUNT 8.7 10^3/uL (4.0-10.0)
[2020-03-13 15:03] LABS: ALBUMIN 3.7 GM/DL (3.2-5.2); ALT/SGPT 32 U/L (12-78); BILIRUBIN,TOTAL 0.6 MG/DL (0.2-1.0); BLOOD UREA NITROGEN 16 MG/DL (7-18); CALCIUM LEVEL 10.1 MG/DL (8.8-10.2); CARBON DIOXIDE LEVEL 32 MEQ/L (21-32); CHLORIDE LEVEL 104 MEQ/L (98-107); CHOLESTEROL LEVEL 212 MG/DL (<200); CREATININE FOR GFR 0.74 MG/DL (0.55-1.30); GLOMERULAR FILTRATION RATE > 60.0 (>39); GLUCOSE, FASTING 94 MG/DL (70-100); HDL CHOLESTEROL 41 MG/DL (>40); LDL CHOLESTEROL 140 MG/DL (<100); MAGNESIUM LEVEL 2.3 MG/DL (1.8-2.4); NON-HDL-C 171 MG/DL; POTASSIUM SERUM 4.4 MEQ/L (3.5-5.1); SODIUM LEVEL 142 MEQ/L (136-145); TOTAL PROTEIN 6.7 GM/DL (6.4-8.2); TRIGLYCERIDES LEVEL 153 MG/DL (<150)
== END ==
LOC: M SFHCPLAZ 10:51
PROVIDERS: ATTEND Internal Medicine
DX: E78.00 Pure hypercholesterolemia, unspecified (principal); Z86.010 Personal history of colon polyps; I10 Essential (primary) hypertension; Z11.59 Encounter for screening for other viral diseases
CPT/HCPCS: 36415; 80053; 80061; 83735; 84443; 85027; G0463; G0472

== ENCOUNTER → 2020-12-18 | Outpatient (CLI) | payer MEDICARE, OTHER ==
[2020-12-18 18:20] LABS: BASO # 0.1 10^3/uL (0.0-0.2); BASO % 1.1 % (0.0-1.0); EOS # 0.4 10^3/uL (0.0-0.5); EOS % 3.9 % (0.0-3.0); HEMATOCRIT 44.7 % (36.0-47.0); HEMOGLOBIN 14.3 g/dl (12.0-15.5); LYMPH # 3.8 10^3/uL (1.5-5.0); LYMPH % 42.4 % (24.0-44.0); MEAN CORPUSCULAR VOLUME 93.7 fl (80.0-96.0); MONO # 0.9 10^3/uL (0.0-0.8); MONO % 9.5 % (2.0-8.0); NEUTROPHILS # 3.9 10^3/uL (1.5-8.5); NEUTROPHILS % 42.9 % (36.0-66.0); PLATELET COUNT, AUTOMATED 241 10^3/uL (150-450); RED BLOOD COUNT 4.77 10^6/uL (4.00-5.40)
[2020-12-18 18:44] LABS: ALBUMIN 3.8 GM/DL (3.2-5.2); ALT/SGPT 28 U/L (12-78); BILIRUBIN,TOTAL 0.7 MG/DL (0.2-1.0); BLOOD UREA NITROGEN 14 MG/DL (7-18); CALCIUM LEVEL 9.2 MG/DL (8.8-10.2); CARBON DIOXIDE LEVEL 30 MEQ/L (21-32); CHLORIDE LEVEL 108 MEQ/L (98-107); CHOLESTEROL LEVEL 200 MG/DL (<200); CHOLESTEROL RISK RATIO 4.878 (<5); CREATININE FOR GFR 0.77 MG/DL (0.55-1.30); GLOMERULAR FILTRATION RATE > 60.0 (>39); GLUCOSE, FASTING 90 MG/DL (70-100); HDL CHOLESTEROL 41 MG/DL (>40); LDL CHOLESTEROL 125 MG/DL (<100); NON-HDL-C 159 MG/DL; POTASSIUM SERUM 4.1 MEQ/L (3.5-5.1); SODIUM LEVEL 143 MEQ/L (136-145); TRIGLYCERIDES LEVEL 170 MG/DL (<150)
== END ==
LOC: M PLALAB 14:40
PROVIDERS: ATTEND Internal Medicine
DX: E78.2 Mixed hyperlipidemia (principal); I10 Essential (primary) hypertension
CPT/HCPCS: 36415; 80053; 80061; 84443; 85025; G0463

== ENCOUNTER → 2021-06-25 | Outpatient (CLI) | payer MEDICARE, OTHER ==
[2021-06-25 15:55] LABS: ALBUMIN 3.7 GM/DL (3.2-5.2); ALT/SGPT 25 U/L (12-78); BILIRUBIN,TOTAL 0.8 MG/DL (0.2-1.0); BLOOD UREA NITROGEN 12 MG/DL (7-18); CALCIUM LEVEL 9.4 MG/DL (8.8-10.2); CARBON DIOXIDE LEVEL 31 MEQ/L (21-32); CHLORIDE LEVEL 110 MEQ/L (98-107); CHOLESTEROL LEVEL 164 MG/DL (<200); GLOMERULAR FILTRATION RATE > 60.0 (>39); GLUCOSE, FASTING 95 MG/DL (70-100); HDL CHOLESTEROL 40 MG/DL (>40); LDL CHOLESTEROL 99 MG/DL (<100); MAGNESIUM LEVEL 2.3 MG/DL (1.8-2.4); NON-HDL-C 124 MG/DL; POTASSIUM SERUM 4.4 MEQ/L (3.5-5.1); SODIUM LEVEL 146 MEQ/L (136-145); TOTAL PROTEIN 6.6 GM/DL (6.4-8.2); TRIGLYCERIDES LEVEL 123 MG/DL (<150)
== END ==
LOC: M PLALAB 11:39
PROVIDERS: ATTEND Internal Medicine
DX: I10 Essential (primary) hypertension (principal)

== ENCOUNTER → 2021-06-25 | Outpatient (REF) | payer MEDICARE, OTHER | LOC: M SFHCPLAZ 11:12 | PROVIDERS: ATTEND Internal Medicine | DX: I10 Essential (primary) hypertension (principal); E78.2 Mixed hyperlipidemia; Z53.9 Procedure and treatment not carried out, unspecified reason ==

== ENCOUNTER → 2021-12-02 | Outpatient (CLI) | payer MEDICARE, OTHER ==
[~2021-12-02] MED LIST changes: +VITA30004 PO
== END ==
LOC: M LABSMTC 10:31
PROVIDERS: ATTEND Anesthesiology
DX: Z01.812 Encounter for preprocedural laboratory examination (principal); Z11.52 Encounter for screening for COVID-19

== ENCOUNTER 2021-12-05 07:57 | Day surgery (SDC) | payer MEDICARE, OTHER ==
[~2021-12-05] VITALS: Ht 167.6 cm; Wt 84.4 kg
[~2021-12-05 07:57] MED LIST changes: +LIDOCAINE 2% 100MG/5ML SDV (FOR ANES.) As Ordered ONE; +NS 1,000 ML IV ONE; +propofoL 200 MG/20 ML VIAL As Ordered ONE
[2021-12-05 10:00] VITALS: BP 156/74
== END 2021-12-05 10:10 | disposition home or self-care (01) ==
LOC: M OPP 07:57
PROVIDERS: ATTEND Internal Medicine Gastroenterology
DX: Z12.11 Encounter for screening for malignant neoplasm of colon (principal); Z86.010 Personal history of colon polyps; Z80.0 Family history of malignant neoplasm of digestive organs; D12.0 Benign neoplasm of cecum; K57.30 Diverticulosis of large intestine without perforation or abscess without bleeding; K64.8 Other hemorrhoids; Z79.02 Long term (current) use of antithrombotics/antiplatelets; Z79.51 Long term (current) use of inhaled steroids; Z79.82 Long term (current) use of aspirin; Z79.899 Other long term (current) drug therapy; I10 Essential (primary) hypertension; E78.00 Pure hypercholesterolemia, unspecified; R12 Heartburn; Z86.711 Personal history of pulmonary embolism; Z80.3 Family history of malignant neoplasm of breast

== ENCOUNTER → 2022-12-04 | Day surgery (SDC) | payer MEDICARE, OTHER ==
[~2022-12-04] VITALS: Ht 165.1 cm; Wt 86.2 kg
[2022-12-04 13:32] VITALS: TEMP 97.3
[2022-12-04 14:07] VITALS: BP 163/87; O2SAT 95
== END | disposition home or self-care (01) ==
LOC: M OPP 12:24
PROVIDERS: ATTEND Internal Medicine Gastroenterology
DX: K29.70 Gastritis, unspecified, without bleeding (principal); K44.9 Diaphragmatic hernia without obstruction or gangrene; I10 Essential (primary) hypertension; E78.5 Hyperlipidemia, unspecified; K21.9 Gastro-esophageal reflux disease without esophagitis; J45.909 Unspecified asthma, uncomplicated; Z86.711 Personal history of pulmonary embolism; Z79.82 Long term (current) use of aspirin; Z79.899 Other long term (current) drug therapy; Z82.49 Family history of ischemic heart disease and other diseases of the circulatory system; Z80.0 Family history of malignant neoplasm of digestive organs; Z80.3 Family history of malignant neoplasm of breast; Z83.2 Family history of diseases of the blood and blood-forming organs and certain disorders involving the immune mechanism

== ENCOUNTER → 2022-12-18 | Outpatient (CLI) | payer MEDICARE, OTHER ==
[~2022-12-18] MED LIST changes: -LIDOCAINE 2% 100MG/5ML SDV (FOR ANES.) As Ordered ONE; -NS 1,000 ML IV ONE; -propofoL 200 MG/20 ML VIAL As Ordered ONE
[2022-12-18 13:54] LABS: HEMATOCRIT 43.9 % (36.0-47.0); HEMOGLOBIN 14.2 g/dl (12.0-15.5); MEAN CORPUSCULAR HGB CONC 32.3 g/dl (32.0-36.5); MEAN CORPUSCULAR VOLUME 92.8 fl (80.0-96.0); PLATELET COUNT, AUTOMATED 265 10^3/uL (150-450); RED BLOOD COUNT 4.73 10^6/uL (4.00-5.40); WHITE BLOOD COUNT 7.3 10^3/uL (4.0-10.0)
[2022-12-18 14:28] LABS: HEMOGLOBIN A1c 5.3 % (4.0-6.0)
[2022-12-18 14:34] LABS: ALBUMIN 3.7 G/DL (3.2-5.2); ALKALINE PHOSPHATASE 99 U/L (46-116); ALT/SGPT 25 U/L (7.0-40); AST/SGOT 15 U/L (<34); BILIRUBIN,TOTAL 0.8 MG/DL (0.3-1.2); BLOOD UREA NITROGEN 13 MG/DL (9-23); CALCIUM LEVEL 9.1 MG/DL (8.3-10.6); CARBON DIOXIDE LEVEL 30 MMOL/L (20-31); CHLORIDE LEVEL 105 MMOL/L (98-107); CHOLESTEROL LEVEL 196 MG/DL (<200); CHOLESTEROL RISK RATIO 4.74 (<5); CREATININE FOR GFR 0.67 MG/DL (0.55-1.30); GLOMERULAR FILTRATION RATE > 60.0 (>39); GLUCOSE, FASTING 91 MG/DL (74-106); HDL CHOLESTEROL 41.3 MG/DL (>40); LDL CHOLESTEROL 124.3 MG/DL (<100); NON-HDL-C 154.7 MG/DL; POTASSIUM SERUM 4.3 MMOL/L (3.5-5.1); SODIUM LEVEL 142 MMOL/L (136-145); THYROID STIMULATING HORMONE 2.071 uIU/ML (0.55-4.78); TOTAL 25(OH) VITAMIN D 66.7 NG/ML (20.0-100.0); TOTAL PROTEIN 6.5 G/DL (5.7-8.2); TRIGLYCERIDES LEVEL 152 MG/DL (<150); VITAMIN B12 LEVEL 419 PG/ML (211-911)
== END ==
LOC: M PLALAB 11:09
PROVIDERS: ATTEND Internal Medicine Hematology
DX: I10 Essential (primary) hypertension (principal); Z79.899 Other long term (current) drug therapy

== ENCOUNTER → 2024-09-21 | Outpatient (REF) | payer MEDICARE, OTHER | LOC: M SFHCPLAZ 11:52 | PROVIDERS: ATTEND Family Medicine | DX: Z53.9 Procedure and treatment not carried out, unspecified reason (principal) ==

== ENCOUNTER → 2024-09-21 | Outpatient (CLI) | payer MEDICARE, OTHER ==
[2024-09-21 14:00] LABS: PLATELET COUNT, AUTOMATED 243 10^3/uL (150-450)
[2024-09-21 14:28] LABS: ALT/SGPT 22.0 U/L (7.0-40); AST/SGOT 18.0 U/L (<34); CALCIUM LEVEL 8.9 MG/DL (8.3-10.6); CARBON DIOXIDE LEVEL 31.0 MMOL/L (20-31); CHLORIDE LEVEL 106.0 MMOL/L (98-107); CHOLESTEROL LEVEL 172.0 MG/DL (<200); CHOLESTEROL RISK RATIO 3.85 (<5); CREATININE FOR GFR 0.71 MG/DL (0.55-1.30); GLOMERULAR FILTRATION RATE 88.1 (>39); LDL CHOLESTEROL 100.0 MG/DL (<100); NON-HDL-C 127.4 MG/DL; POTASSIUM SERUM 4.2 MMOL/L (3.5-5.1); SODIUM LEVEL 145.0 MMOL/L (136-145); TRIGLYCERIDES LEVEL 137.0 MG/DL (<150)
== END ==
LOC: M PLALAB 12:13
PROVIDERS: ATTEND Family Medicine
DX: Z00.00 Encounter for general adult medical examination without abnormal findings (principal)